=== PATIENT | male | born 1950 | race Caucasian/White ===

== ENCOUNTER → 2020-12-16 | Day surgery (SDC) | payer MEDICARE, OTHER ==
[~2020-12-16] MED LIST: AMLODIPINE BESYL5 MG PO; ATORVASTATIN CA10 MG PO; COLACE 100MG C100 MG PO; NORCO 7.5-3251 EACH PO
== END | disposition home or self-care (01) ==
LOC: OR 06:08
DX: R19.5 Other fecal abnormalities (principal); N40.0 Benign prostatic hyperplasia without lower urinary tract symptoms; R30.0 Dysuria; N43.3 Hydrocele, unspecified; I10 Essential (primary) hypertension; E78.5 Hyperlipidemia, unspecified; K40.90 Unilateral inguinal hernia, without obstruction or gangrene, not specified as recurrent; R21 Rash and other nonspecific skin eruption; M25.522 Pain in left elbow; M79.676 Pain in unspecified toe(s); Z79.899 Other long term (current) drug therapy
CPT/HCPCS: J2704; J7120